=== PATIENT | male | born 1995 | race Caucasian/White ===

== ENCOUNTER 2020-11-12 19:39 | Emergency (ER) | payer OTHER ==
[~2020-11-12] VITALS: Ht 175.3 cm; Wt 68.2 kg
[2020-11-12 20:31] VITALS: BP 119/83; PULSE 83; TEMP 98
== END 2020-11-12 20:31 | disposition home or self-care (01) ==
LOC: COL.ER 19:39
DX: F41.9 Anxiety disorder, unspecified (principal); K92.1 Melena

== ENCOUNTER → 2020-11-12 | Outpatient (CLI) | payer OTHER ==
[~2020-11-12] MED LIST: FLONASEALLERGY NS
== END ==
LOC: COL.LAB 17:10
DX: R19.7 Diarrhea, unspecified (principal)

== ENCOUNTER 2021-01-25 05:08 | Emergency (ER) | payer BC ==
[~2021-01-25] VITALS: Ht 172.7 cm; Wt 69.1 kg
[2021-01-25 05:56] VITALS: BP 126/80; TEMP 99.8
[2021-01-25] MEDS ORDERED: FLONASEALLERGY NS (06:09)
[2021-01-25 06:41] VITALS: PULSE 95
== END 2021-01-25 06:41 | disposition home or self-care (01) ==
LOC: COL.ER 05:08
DX: J06.9 Acute upper respiratory infection, unspecified (principal)

== ENCOUNTER 2021-05-09 02:15 | Emergency (ER) | payer BC ==
[~2021-05-09] VITALS: Ht 172.7 cm; Wt 68.2 kg
[2021-05-09 02:21] VITALS: TEMP 98.6
[2021-05-09] MEDS ORDERED: PREDNISONE20 MG PO (02:44)
[2021-05-09 03:17] VITALS: BP 111/84; PULSE 74
== END 2021-05-09 03:17 | disposition home or self-care (01) ==
LOC: COL.ER 02:15
DX: U07.1 COVID-19 (principal); J45.909 Unspecified asthma, uncomplicated; Z79.51 Long term (current) use of inhaled steroids
CPT/HCPCS: J7512

== ENCOUNTER 2021-06-21 08:57 | Outpatient (RCR) | payer BC ==
[~2021-06-21 08:57] MED LIST changes: +PREDNISONE20 MG PO
== END 2021-06-28 | disposition home or self-care (01) ==
LOC: WSST
DX: K21.9 Gastro-esophageal reflux disease without esophagitis (principal)

== ENCOUNTER 2021-07-01 03:37 | Emergency (ER) | payer BC ==
[~2021-07-01] VITALS: Ht 172.7 cm; Wt 70.5 kg
[2021-07-01 04:41] LABS: BASO % 0.3 % (0.0-2.0); EOS % 0.4 % (0.0-4.0); GRAN # 7.7 K/mm3 (1.4-6.5); GRAN % 72.1 % (42.2-75.2); HEMOGLOBIN 15.4 g/dl (13.5-18.0); LYMPH # 1.8 K/mm3 (1.2-3.4); LYMPH % 16.7 % (20.0-51.0); MEAN CELL VOLUME 90 fl (80.0-100.0); MEAN CORPUSCULAR HEMOGLOBIN 33 pg (27-31); MEAN CORPUSCULAR HGB CONC 37 g/dl (33.0-37.0); MEAN PLATELET VOLUME 10.7 fl (7.4-10.4); MONO # 1.1 K/mm3 (0.1-0.6); MONO % 10.2 % (1.7-9.3); PLATELET COUNT 239 K/mm3 (130-400); RED BLOOD COUNT 4.69 M/mm3 (4.20-5.60); REDCELL DISTRIBUTION WIDTH-CV 12.5 % (11.5-14.5)
[2021-07-01 05:07] LABS: ALANINE AMINOTRANSFERASE 35 U/L (0-55); ALBUMIN 4.7 gm/dL (3.5-5.0); ALKALINE PHOSPHATASE 45 U/L (40-150); ANION GAP 11 mmol/L (7-16); AST,SGOT 27 U/L (5-34); BILIRUBIN,TOTAL 1.5 mg/dL (0.2-1.2); BLOOD UREA NITROGEN 12 mg/dL (9-21); CALCIUM 9.3 mg/dL (8.4-10.2); CARBON DIOXIDE 24 mmol/L (22-29); CHLORIDE 103 mmol/L (98-107); CREATININE, serum 0.95 mg/dL (0.72-1.25); GLUCOSE 112 mg/dL (70-99); POTASSIUM 3.5 mmol/L (3.5-4.5); SODIUM 138 mmol/L (136-145); TOTAL PROTEIN 7.8 gm/dL (6.2-8.1)
[2021-07-01 05:11] VITALS: TEMP 98.1
[2021-07-01 05:18] LABS: TROPONIN-I < 0.010 ng/mL (0.00-0.033)
[2021-07-01 07:40] VITALS: BP 129/77; PULSE 80
== END 2021-07-01 07:41 | disposition home or self-care (01) ==
LOC: COL.ER 03:37
PROVIDERS: Personal Emergency Response Attendant
DX: R00.2 Palpitations (principal); J45.909 Unspecified asthma, uncomplicated; Z79.51 Long term (current) use of inhaled steroids; Z79.52 Long term (current) use of systemic steroids